=== PATIENT | female | born 1960 | race Caucasian/White ===

== ENCOUNTER → 2016-06-27 | Outpatient (REF) | payer BC | LOC: M LAB REF 16:39 | PROVIDERS: ATTEND Internal Medicine | DX: E78.00 Pure hypercholesterolemia, unspecified (principal) ==

== ENCOUNTER → 2020-09-20 | Outpatient (REF) | payer BC, OTHER ==
[2020-09-20 16:35] LABS: PERCENT SATURATION 8.2 % (13.2-45.0)
== END ==
LOC: M LAB REF 16:03
PROVIDERS: ATTEND Internal Medicine
DX: D64.9 Anemia, unspecified (principal)

== ENCOUNTER → 2022-08-22 | Outpatient (REF) | LOC: M PLAIMG 13:20 | PROVIDERS: ATTEND Internal Medicine | DX: R52 Pain, unspecified (principal) ==

== ENCOUNTER → 2023-02-25 | Outpatient (REF) | payer OTHER ==
[2023-02-27 11:09] LABS: LDL DIRECT 128 mg/dL (0-99)
== END ==
LOC: M LAB REF 15:47
PROVIDERS: ATTEND Internal Medicine
DX: E78.2 Mixed hyperlipidemia (principal)

== ENCOUNTER → 2024-03-25 | Outpatient (CLI) | payer OTHER | LOC: M SOG 08:13 | PROVIDERS: ATTEND Orthopaedic Surgery | DX: M25.552 Pain in left hip (principal); M25.551 Pain in right hip; M16.0 Bilateral primary osteoarthritis of hip ==

== ENCOUNTER → 2024-04-16 | Outpatient (CLI) | payer MEDICARE | LOC: M RAD 13:15 | PROVIDERS: ATTEND Orthopaedic Surgery | DX: M16.0 Bilateral primary osteoarthritis of hip (principal); K42.9 Umbilical hernia without obstruction or gangrene; N28.1 Cyst of kidney, acquired; I70.0 Atherosclerosis of aorta; K57.30 Diverticulosis of large intestine without perforation or abscess without bleeding; Z79.899 Other long term (current) drug therapy ==

== ENCOUNTER → 2024-04-16 | Outpatient (CLI) | payer MEDICARE ==
[2024-04-16 14:39] LABS: BASO # 0.1 10^3/uL (0.0-0.2); EOS # 0.4 10^3/uL (0.0-0.5); EOS % 5.1 % (0.0-3.0); HEMATOCRIT 31.2 % (36.0-47.0); HEMOGLOBIN 9.6 g/dl (12.0-15.5); LYMPH # 1.4 10^3/uL (1.5-5.0); LYMPH % 17.3 % (24.0-44.0); MEAN CORPUSCULAR HEMOGLOBIN 31.1 pg (27.0-33.0); MEAN CORPUSCULAR HGB CONC 30.8 g/dl (32.0-36.5); MONO # 0.6 10^3/uL (0.0-0.8); MONO % 8.1 % (2.0-8.0); NEUTROPHILS # 5.4 10^3/uL (1.5-8.5); NEUTROPHILS % 68.4 % (36.0-66.0); PLATELET COUNT, AUTOMATED 364 10^3/uL (150-450); RED BLOOD COUNT 3.09 10^6/uL (4.00-5.40); WHITE BLOOD COUNT 7.9 10^3/uL (4.0-10.0)
[2024-04-16 14:43] LABS: INR 0.97; PROTHROMBIN TIME 13.2 SECONDS (12.5-14.5)
[2024-04-16 14:44] LABS: ERYTHROCYTE SEDIMENTATION RATE 38 mm/hr (0-30)
[2024-04-16 15:05] LABS: C REACTIVE PROTEIN QUANTITATIV 0.69 MG/DL (<1.0)
[2024-04-16 15:06] LABS: BILIRUBIN,TOTAL 0.2 MG/DL (0.3-1.2); CALCIUM LEVEL 8.7 MG/DL (8.3-10.6); CREATININE FOR GFR 1.22 MG/DL (0.55-1.30); GLOMERULAR FILTRATION RATE 47.2 (>45); POTASSIUM SERUM 4.9 MMOL/L (3.5-5.1); TOTAL PROTEIN 6.5 G/DL (5.7-8.2)
[2024-04-16 15:08] LABS: TOTAL 25(OH) VITAMIN D 21.3 NG/ML (20.0-100.0)
[2024-04-16 15:09] LABS: HEMOGLOBIN A1c 5.2 % (4.0-6.0)
== END ==
LOC: M LAB 13:47
PROVIDERS: ATTEND Orthopaedic Surgery
DX: M16.0 Bilateral primary osteoarthritis of hip (principal); Z79.899 Other long term (current) drug therapy

== ENCOUNTER → 2024-05-11 | Outpatient (CLI) | payer MEDICARE | LOC: M RAD 12:04 | PROVIDERS: ATTEND Orthopaedic Surgery | DX: M16.0 Bilateral primary osteoarthritis of hip (principal); M79.89 Other specified soft tissue disorders ==

== ENCOUNTER → 2024-05-15 | Outpatient (CLI) | payer MEDICARE | LOC: M WHC 11:40 | PROVIDERS: ATTEND Orthopaedic Surgery | DX: M16.0 Bilateral primary osteoarthritis of hip (principal); Z78.0 Asymptomatic menopausal state ==

== ENCOUNTER → 2024-05-21 | Outpatient (REF) | payer MEDICARE | LOC: M LAB REF 16:49 | PROVIDERS: ATTEND Orthopaedic Surgery | DX: Z01.818 Encounter for other preprocedural examination (principal); Z78.9 Other specified health status ==

== ENCOUNTER 2024-08-24 05:56 | Observation (INO) | payer MEDICARE ==
[~2024-08-24] VITALS: Ht 162.6 cm; Wt 113.2 kg
[2024-08-24] VITALS (8 sets, daily range): BP systolic 130–146; BP diastolic 62–95; TEMP 97.2–98.1; O2SAT 92–96
[~2024-08-24 05:56] MED LIST: AMLO1TAB25 PO; ATOR40TA75 PO; FURO20TA2 PO; IRBE300T12 PO; METO1TAB33 PO; PANT40TA29 PO; TRAM1CAP15 PO; TRAM50TA2 PO
[2024-08-24] MEDS ORDERED: ROCURONIUM BROMIDE 50MG/5ML VIAL As Ordered ONE (06:49)
[2024-08-24] MEDS ORDERED: LIDOCAINE 2% INJ 100 MG/5 ML SYRINGE As Ordered ONE (06:49)
[2024-08-24] MEDS ORDERED: MIDAZOLAM INJ 2 MG/2 ML VIAL As Ordered ONE (06:49)
[2024-08-24] MEDS ORDERED: LIDOCAINE 2% 100 MG/5 ML SDV (FOR ANES.) As Ordered ONE (06:52)
[2024-08-24] MEDS: LR 1,000 ML IV SCH (07:25)
[2024-08-24] MEDS ORDERED: HOME MED LIST COMPLETE! XX SCH (07:30)
[2024-08-24] MEDS: VANCOMYCIN HCL 1,500 MG, VIAL MATE ADAPTER 1 EACH in NS 500 ML IV ONE (07:55)
[2024-08-24] MEDS ORDERED: HYDROmorphone HCL 2 MG/ML 1 ML VIAL As Ordered ONE (08:39)
[2024-08-24] MEDS: TRANEXAMIC ACID 100 MG/ML 10ML VIAL As Ordered ONE (08:45)
[2024-08-24] MEDS ORDERED: SUGAMMADEX SODIUM 500 MG/5 ML VIAL As Ordered ONE (09:10)
[2024-08-24] MEDS ORDERED: dexAMETHasone 4 MG/ML 1 ML VIAL As Ordered ONE (09:10)
[2024-08-24] MEDS ORDERED: ONDANSETRON 4MG 2ML VIAL As Ordered ONE (09:11)
[2024-08-24] MEDS: ceFAZolin SOD 2 GM IV ONCE IV ONE (09:21)
[2024-08-24] MEDS: TRANEXAMIC ACID 100 MG/ML 10ML VIAL IV ONE (09:21)
[2024-08-24] MEDS: VANCOMYCIN 1000MG/20ML VIAL As Ordered ONE (10:40)
[2024-08-24] MEDS: REK 50ML SYRINGE IA ONE (10:41)
[2024-08-24] MEDS ORDERED: ONDANSETRON 4MG 2ML VIAL IV PRN ×2 (11:10)
[2024-08-24] MEDS ORDERED: SENNA 8.6 MG TAB PO PRN (12:00)
[2024-08-24] MEDS: MORPHINE 2 MG/ML 1 ML VIAL IV PRN (12:28)
[2024-08-24] MEDS ORDERED: ACETAMINOPHEN 1000MG/100ML IV BAG As Ordered ONE (13:28)
[2024-08-24] MEDS: ceFAZolin SODIUM 2 GM in DEXTROSE 5% (D5W) ADV/MINI-BAG 50 ML IV SCH (16:58)
[2024-08-24] MEDS: ACETAMINOPHEN 325 MG TAB PO SCH (17:07)
[2024-08-24] MEDS: ASPIRIN 81 MG ENTERIC TABLET PO SCH (20:49)
[2024-08-24] MEDS: NAPROXEN 250 MG TAB PO SCH (20:49)
[2024-08-24] MEDS: DOCUSATE SODIUM 100 MG CAPSULE PO SCH (20:50)
[2024-08-25 00:04] VITALS: BP 140/64; TEMP 98.1; O2SAT 93
[2024-08-25 03:25] VITALS: BP 142/62; TEMP 98.6; O2SAT 92
[2024-08-25 07:12] LABS: PLATELET COUNT, AUTOMATED 328 10^3/uL (150-450)
[2024-08-25 07:39] LABS: ALT/SGPT 51 U/L (7.0-40); AST/SGOT 43 U/L (<34); CALCIUM LEVEL 7.9 MG/DL (8.3-10.6); CARBON DIOXIDE LEVEL 21 MMOL/L (20-31); CHLORIDE LEVEL 111 MMOL/L (98-107); CREATININE FOR GFR 1.05 MG/DL (0.55-1.30); GLOMERULAR FILTRATION RATE 59.3 (>45); POTASSIUM SERUM 4.3 MMOL/L (3.5-5.1); SODIUM LEVEL 144 MMOL/L (136-145)
[2024-08-25 08:33] VITALS: BP 148/95; TEMP 97.2; O2SAT 93
[2024-08-25] MEDS: METOPROLOL SUCC. 100 MG *XL* TAB PO SCH (08:41)
[2024-08-25] MEDS: amLODIPine 10 MG TAB PO SCH (08:41)
[2024-08-25] MEDS: ASCORBIC ACID 500 MG TAB PO SCH (08:42)
[2024-08-25] MEDS: FUROSEMIDE 20 MG TAB PO SCH (08:42)
[2024-08-25] MEDS: FERROUS SULFATE 325 MG TAB PO SCH (08:42)
[2024-08-25] MEDS: ATORVASTATIN 20 MG TAB PO SCH (08:42)
[2024-08-25] MEDS: PANTOPRAZOLE 40MG TAB PO SCH (08:42)
[2024-08-25] MEDS ORDERED: ASPI81TAEC PO (08:57)
[2024-08-25] MEDS ORDERED: FERR1TAB8 PO (08:57)
[2024-08-25] MEDS ORDERED: ASCO50TA PO (08:57)
[2024-08-25] MEDS ORDERED: OXYC1TAB23 PO (08:57)
[2024-08-25] MEDS ORDERED: CEFA500C2 PO (10:15)
== END 2024-08-25 15:25 | disposition home or self-care (01) ==
LOC: M SDC 05:56 → M RR INP 05:57 → M MS5PR 14:00
PROVIDERS: ADMIT Orthopaedic Surgery; ATTEND Orthopaedic Surgery
DX: M16.12 Unilateral primary osteoarthritis, left hip (principal); I10 Essential (primary) hypertension; E78.5 Hyperlipidemia, unspecified; K21.9 Gastro-esophageal reflux disease without esophagitis; Z79.899 Other long term (current) drug therapy
CPT/HCPCS: 27130; 36415; 72170; 80053; 85027; 86850; 86900; 86901; 88300; 96365; 96366; 97116; 97161; 97165; 97530; 97535; C1713; C1776; G0378; J0131; J0169; J0690; J1100; J1171; J1885; J2250; J2405; J2795; J3010; J3373; S2900

== ENCOUNTER → 2024-09-03 | Outpatient (CLI) | payer MEDICARE ==
[~2024-09-03] MED LIST changes: +ASCO50TA PO; +ASPI81TAEC PO; +CEFA500C2 PO; +FERR1TAB8 PO; +OXYC1TAB23 PO
== END ==
LOC: M SOG 07:29
PROVIDERS: ATTEND Orthopaedic Surgery
DX: Z47.1 Aftercare following joint replacement surgery (principal)

== ENCOUNTER → 2024-11-04 | Outpatient (CLI) | payer MEDICARE | LOC: M SOG 07:26 | PROVIDERS: ATTEND Orthopaedic Surgery | DX: Z47.1 Aftercare following joint replacement surgery (principal); Z96.642 Presence of left artificial hip joint ==

== ENCOUNTER → 2025-02-02 | Outpatient (CLI) | payer MEDICARE | LOC: M SOG 07:46 | PROVIDERS: ATTEND Orthopaedic Surgery | DX: Z96.641 Presence of right artificial hip joint (principal); M16.0 Bilateral primary osteoarthritis of hip ==